=== PATIENT | female | born 1995 | race Caucasian/White ===

== ENCOUNTER 2020-09-10 11:17 | Emergency (ER) | payer SELFPAY ==
[2020-09-10] MEDS ORDERED: IPRATROPIUM/ALBUTEROL 0.5-2.5 MG/3 ML AMPUL NEB ONE (11:55)
--- NOTE | 2020-09-10 11:58 | ER Document Report ---
ED Medical Screen (RME) - General Chief Complaint: Post Surgical Pain Stated Complaint: TROUBLE BREATHING Time Seen by Provider: 09/10/20 11:50 - HPI Notes: 09/10/20 11:56 25-year-old female with a history of asthma and vaping presents to the emergency room with shortness of breath that started today with throat pain that started yesterday. Patient states that she started to lose her sense of taste today. Patient does work at levels, does manual labor, she is unsure if she is has any Covid exposure from work. Denies any positive Covid test herself. Does report chest pain with coughing. Last menstrual cycle 09/04/2020. Reports difficulty with breathing has become progressively worse throughout the day. Has not tried any [id number] medications. Worse with time, nothing makes better. Denies any fevers chills, nausea, vomiting, diarrhea. I have greeted and performed a rapid initial assessment of this patient. A comprehensive ED assessment and evaluation of the patient, analysis of test results and completion of the medical decision making process will be conducted by additional ED providers. PHYSICAL EXAMINATION: GENERAL: Well-appearing, well-nourished and in no acute distress. HEAD: Atraumatic, normocephalic. EYES: Pupils equal round extraocular movements intact, conjunctiva are normal. ENT: Posterior pharynx with erythema, no exudate NECK: Normal range of motion CV: s1, s2 regular LUNGS: No respiratory distress - Related Data Allergies/Adverse Reactions: Cephalosporins Allergy (Verified 09/10/20 11:54) Physical Exam - Vital signs Vitals: Temp Pulse Resp BP Pulse Ox 98.5 F 102 H 20 110/92 H 99 09/10/20 11:25 09/10/20 11:25 09/10/20 11:25 09/10/20 11:25 09/10/20 11:25 Course - Vital Signs Vital signs: Temp Pulse Resp BP Pulse Ox 98.5 F 102 H 20 110/92 H 99 09/10/20 11:25 09/10/20 11:25 09/10/20 11:25 09/10/20 11:25 09/10/20 11:25
--- NOTE | 2020-09-10 14:08 | ER Document Report ---
ED General - General Chief Complaint: Sore Throat Stated Complaint: TROUBLE BREATHING Time Seen by Provider: 09/10/20 11:50 - HPI Notes: Chief Complaint: Sore throat Historian: History obtained from patient HPI: This is a 25-year-old female presents to the ER complaining of 3 days of sore throat and dry cough. 2 weeks ago she had some intermittent diarrhea and nausea vomiting that resolved. Patient says she felt like she had a fever 2 days ago but it measured only 99.9. She says she did have contact with her [id number] who had similar symptoms and tested negative for Covid and he had since resolved. She has been using throat sprays for her sore throat. Says she can no longer taste but is unsure if that is symptom of Covid or if that might be related to the throat sprays. She denies chest pain or shortness of breath, abdominal pain, headache. She is tolerating p.o. intake. ROS: Constitutional: Intermittent chills HEENT: Sore throat CV: no chest pain or palpitations. Resp: Dry cough. No shortness of breath GI: no abdominal pain. Resolved N/V/D : no dysuria, hematuria, or incont. MSK: no back pain, no joint swelling/redness. Skin: no rashes or itching. Neuro: no seizures, weakness, numbness, or confusion. Hematological: no ecchymosis or easy bleeding. Endocrine: no polyuria/polydipsia, no heat/cold intolerance. Psych: no SI/HI, AH/VH or memory loss. PMHx: Reviewed and agree as charted by RN. PSHx: Reviewed and agree as charted by RN. SOCHx: Reviewed and agree as charted by RN. FHX: No significant familial comorbid conditions directly related to patient complaint Current Medications: Reviewed and agree with the patient medications as charted by the RN. Allergies: Reviewed and agree with the listed allergies as charted by the RN Physical Exam: Vitals: Reviewed in chart as documented by RN. General: Alert and in NAD. Head: Normocephalic; atraumatic Eyes: PERRLA, Conjunctivae clear sclerae non-icteric bilat ENT: Tonsils 2+ erythematous, symmetrical. No exudate noted. no soft palate swelling or uvular deviation. Controlling oral secretions. Neck: trachea midline, bilateral anterior cervical lymphadenopathy. CV: RRR, no M/R/G; symmetric distal pulses Resp: respirations even and unlabored, CTA bilat. no rhonchi, stridor, wheeze. GI: abd soft and nondistended. NTTP. normal BS. no masses/HSM. no CVAT bilat MSK: FROM of all extremities. No midline CTL spine tenderness/deformity Skin: warm, moist, good turgor. no rash/lesions Neuro: Alert and oriented X 4. following CN 2-12 intact. no unilateral weakness/numbness Psych: No SI/HI or AH/VH. ED Results: Medical Decision-Making: Medical Decision-making/Differential Diagnosis: Consider various etiologies including but not limited to covid, viral syndrome, strep pharyngitis, viral pharyngitis, other pharyngitis, león-tonsillar abscess (unlikely), retropharyngeal abscess (unlikely), Acute Suppurative Otitis media, otalgia, upper respiratory infection, viral syndrome, bronchitis, sinusitis, ect Plan- triage provider ordered covid swab, strep test, CXR, and duoneb. cxr negative. breath sounds clear- no wheeze or rhonchi. O2 sats 99% on RA- no resp distress. pending strep at this time. likely d/c home to self quarantine and await covid results. suspect pt has viral syndrome. PT is nontoxic appearing. 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 supportive home care discussed. strep negative. will d/c home w/ above plan. This course of action was discussed with the patient and/or family. They were amenable to this, verbalized understanding, and were without further questions. - Related Data Allergies/Adverse Reactions: Cephalosporins Allergy (Verified 09/10/20 11:54) Home Medications: control Past Medical History - Social History Smoking Status: Former Smoker Chew tobacco use (# tins/day): No Frequency of alcohol use: Social Drug Abuse: None Family History: Reviewed & Not Pertinent Patient has homicidal ideation: No Physical Exam - Vital signs Vitals: Temp Pulse Resp BP Pulse Ox 98.5 F 102 H 20 110/92 H 99 09/10/20 11:25 09/10/20 11:25 09/10/20 11:25 09/10/20 11:25 09/10/20 11:25 Course - Vital Signs Vital signs: Temp Pulse Resp BP Pulse Ox 98.5 F 102 H 20 110/92 H 99 09/10/20 11:25 09/10/20 11:09/10/20 11:09/10/20 11:09/10/20 11:25 - Laboratory Results Critical Laboratory Results Reviewed: No Critical Results - Radiology Results Critical Radiology Results Reviewed: No Critical Results Discharge - Discharge Clinical Impression: Sore throat, Viral syndrome Condition: Stable Disposition: HOME, SELF-CARE Instructions: COVID-19 Guidance for Persons Under Investigation, Sore Throat ([facility]) Additional Instructions: alternate tylenol and motrin for pain and/or fever. drink plenty of fluids. follow printed instructions. self quarantine at home until you are called w/ covid results and further instructions. primary doctor follow up in 1 week as needed for recheck. return to the ER if your condition worsens. Forms: Return to Work
--- NOTE | 2020-09-10 14:19 | RADIOLOGY REPORT (SQ) ---
EXAM DESCRIPTION: CHEST SINGLE VIEW IMAGES COMPLETED DATE/TIME: 09/10/2020 2:10 pm REASON FOR STUDY: day COMPARISON: None. NUMBER OF VIEWS: One view. TECHNIQUE: Single frontal radiographic view of the chest acquired. LIMITATIONS: None. FINDINGS: LUNGS AND PLEURA: No opacities, masses or pneumothorax. No pleural effusion. MEDIASTINUM AND HILAR STRUCTURES: No masses. Contour normal. HEART AND VASCULAR STRUCTURES: Heart normal in size. Normal vasculature. BONES: No acute findings. HARDWARE: None in the chest. OTHER: No other significant finding. IMPRESSION: NO SIGNIFICANT RADIOGRAPHIC FINDING IN THE CHEST. TECHNICAL DOCUMENTATION: JOB ID: [id number] 2010 [employer]- All Rights Reserved Reading location - IP/workstation name: [email or web address]
[2020-09-10 15:26] VITALS: BP 129/80
== END 2020-09-10 15:24 | disposition home or self-care (01) ==
LOC: ER 11:17
DX: J02.9 Acute pharyngitis, unspecified (principal); B34.9 Viral infection, unspecified; R06.02 Shortness of breath; Z20.828 Contact with and (suspected) exposure to other viral communicable diseases
CPT/HCPCS: 94640; 99284; 87070; 87880; 87635; 71045; C9803; 87077